=== PATIENT | male | born 1940 | race African-American/Black ===

== ENCOUNTER 2018-01-17 07:47 | Day surgery (SDC) | payer OTHER ==
[2018-01-14 14:08] VITALS: BMI 25.5
[2018-01-17 08:39] VITALS: TEMP 97.6
[2018-01-17] MEDS ORDERED: LIDOCAINE HCL/PF 2% SDV 5ML VIAL ONE (08:55)
[2018-01-17] MEDS ORDERED: PROPOFOL 20 ML ONE ×3 (08:55)
[2018-01-17 12:23] VITALS: BP 122/58; PULSE 60
--- NOTE | 2018-01-19 13:03 | PATH ---
Surgical Pathology Report Patient Name: LENNY SHEFFIELD [facility]. Rec. #: [id number] /Age/Gender: 1940 (Age: 77) / M Account: [id number] Location: U-ENDOSCOPY Taken: 01/17/2018 Received: 01/17/2018 Reported: 01/19/2018 Physicians: Charlie Velazquez M.D. Specimen(s) Received A: BX 2ND PORTION DUODENUM AND BULB B: BX ANTRUM C: BX GE JUNCTION D: POLYP SIGMOID AT 18 CM E: BX ILEUM F: BX CECUM G: BX RIGHT COLON H: BX PROXIMAL TRANSVERSE COLON I: BX TRANSVERSE COLON STRICTURE J: BX DESCENDING COLON K: BX SIGMOID L: BX RECTUM Clinical History Refractory GERD, ulcerating colitis Final Diagnosis A. 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 B. ANTRUM, BIOPSY: GASTRIC MUCOSA WITH MILD CHRONIC INFLAMMATION. IMMUNOSTAIN IS NEGATIVE FOR H. PYLORI ORGANISMS. C. GE JUNCTION, BIOPSY: ESOPHAGEAL (SQUAMOUS) MUCOSA WITH CHANGES CONSISTENT WITH REFLUX ESOPHAGITIS. D. SIGMOID POLYP AT 18 CM, POLYPECTOMY: INFLAMMATORY POLYP. E. ILEUM, BIOPSY: ILEAL MUCOSAL WITH MILD CHRONIC ILEITIS. F. CECUM, BIOPSY: COLONIC MUCOSA WITH ACTIVE CHRONIC INFLAMMATION OF LAMINA PROPRIA, ACUTE CRYPTITIS, CRYPT ABSCESS, CRYPTAL DISTORTION, AND LYMPHOID AGGREGATES. G. RIGHT COLON, BIOPSY: COLONIC MUCOSA WITH ACTIVE CHRONIC INFLAMMATION OF LAMINA PROPRIA, ACUTE CRYPTITIS, CRYPT ABSCESS, CRYPTAL DISTORTION, AND LYMPHOID AGGREGATES. H. PROXIMAL TRANSVERSE COLON, BIOPSY: COLONIC MUCOSA WITH ACTIVE CHRONIC INFLAMMATION OF LAMINA PROPRIA, ACUTE CRYPTITIS, CRYPT ABSCESS, AND CRYPTAL DISTORTION. I. TRANSVERSE COLON STRICTURE, BIOPSY: COLONIC MUCOSA WITH SEVERE ACTIVE CHRONIC INFLAMMATION OF LAMINA PROPRIA, ACUTE CRYPTITIS, CRYPT ABSCESS, CRYPTAL DISTORTION, AND LYMPHOID AGGREGATES. ONE FOCUS OF GRANULOMATOUS INFLAMMATION PRESENT IN THE LAMINA PROPRIA. SEE COMMENT. COMMENT: PAS STAIN FOR FUNGAL HYPHAE AND AFB STAIN ARE NEGATIVE. J. DESCENDING COLON, BIOPSY: COLONIC MUCOSA WITH SEVERE ACTIVE CHRONIC INFLAMMATION OF LAMINA PROPRIA, ACUTE CRYPTITIS, CRYPT ABSCESS, CRYPTAL DISTORTION, AND LYMPHOID AGGREGATES. K. SIGMOID, BIOPSY: COLONIC MUCOSA WITH ACTIVE CHRONIC INFLAMMATION OF LAMINA PROPRIA, ACUTE CRYPTITIS, AND CRYPTAL DISTORTION. L. RECTUM, BIOPSY: COLONIC MUCOSA WITH ACTIVE CHRONIC INFLAMMATION OF LAMINA PROPRIA, ACUTE CRYPTITIS, LYMPHOID AGGREGATES, AND CRYPTAL DISTORTION. Electronically Signed Sherine Agarwal M.D. Gross Description A. Received in formalin, labeled "second portion duodenum and bulb" are multiple davidson, irregular portions of soft tissue measuring 0.5 cm. in greatest dimension. The specimens are submitted in toto in one cassette. B. Received in formalin, labeled "biopsy antrum" are multiple davidson, irregular portions of soft tissue measuring 0.5 cm. in greatest dimension. The specimens are submitted in toto in one cassette. C. Received in formalin, labeled "biopsy GE junction" are 2 davidson, irregular portions of soft tissue measuring 0.3 cm. in greatest dimension. The specimens are submitted in toto in one cassette. D. Received in formalin, labeled "sigmoid colon polyp" is a polypoid soft tissue measuring 1 x 0.5 x 0.5 cm. the specimen is entirely submitted in one cassette the bisected. E. Received in formalin, labeled "biopsy ileum" is a davidson, irregular portion of soft tissue measuring 0.3 cm. in greatest dimension. The specimens are submitted in toto in one cassette. F. Received in formalin, labeled "biopsy cecum" are multiple davidson, irregular portions of soft tissue measuring 0.5 cm. in greatest dimension. The specimens are submitted in toto in one cassette. G. Received in formalin, labeled "biopsy right colon" are 4 davidson, irregular portions of soft tissue measuring 0.4 cm. in greatest dimension. The specimens are submitted in toto in one cassette. H. Received in formalin, labeled "biopsy proximal transverse colon" are 3 davidson, irregular portions of soft tissue measuring 0.4 cm. in greatest dimension. The specimens are submitted in toto in one cassette. I. Received in formalin, labeled "biopsy transverse colon" are 3 davidson, irregular portions of soft tissue measuring 0.4 cm. in greatest dimension. The specimens are submitted in toto in one cassette. J. Received in formalin, labeled "biopsy descending colon" are 4 davidson, irregular portions of soft tissue measuring 0.3 cm. in greatest dimension. The specimens are submitted in toto in one cassette. K. Received in formalin, labeled "biopsy sigmoid colon", are 2 portions of soft tissue measuring 0.3 cm in largest dimension. the specimen is entirely submitted in one cassette the bisected. L. Received in formalin, labeled "biopsy rectum" are multiple davidson, irregular portion of soft tissue measuring 0.5 cm. in greatest dimension. The specimens are submitted in toto in one cassette. __ KUNAL/01/17/2018 roscoe/01/17/2018
== END 2018-01-17 12:23 | disposition home or self-care (01) ==
LOC: JASU-ENDO 07:47
PROVIDERS: ATTEND Internal Medicine Gastroenterology
PROC: 0DB68ZX Excision of Stomach, Via Natural or Artificial Opening Endoscopic, Diagnostic (ICD-10-PCS; 2018-01-17)
PROC: 0DB28ZX Excision of Middle Esophagus, Via Natural or Artificial Opening Endoscopic, Diagnostic (ICD-10-PCS; 2018-01-17)
PROC: 0DB48ZX Excision of Esophagogastric Junction, Via Natural or Artificial Opening Endoscopic, Diagnostic (ICD-10-PCS; 2018-01-17)
PROC: 0DBN8ZX Excision of Sigmoid Colon, Via Natural or Artificial Opening Endoscopic, Diagnostic (ICD-10-PCS; 2018-01-17)
PROC: 0DBB8ZX Excision of Ileum, Via Natural or Artificial Opening Endoscopic, Diagnostic (ICD-10-PCS; 2018-01-17)
PROC: 0DBE8ZX Excision of Large Intestine, Via Natural or Artificial Opening Endoscopic, Diagnostic (ICD-10-PCS; 2018-01-17)
PROC: 0DBL8ZX Excision of Transverse Colon, Via Natural or Artificial Opening Endoscopic, Diagnostic (ICD-10-PCS; 2018-01-17)
PROC: 0DBN8ZX Excision of Sigmoid Colon, Via Natural or Artificial Opening Endoscopic, Diagnostic (ICD-10-PCS; 2018-01-17)
PROC: 0DBF8ZX Excision of Right Large Intestine, Via Natural or Artificial Opening Endoscopic, Diagnostic (ICD-10-PCS; 2018-01-17)
PROC: 0DB98ZX Excision of Duodenum, Via Natural or Artificial Opening Endoscopic, Diagnostic (ICD-10-PCS; principal; 2018-01-17 09:00)
DX: Z12.11 Encounter for screening for malignant neoplasm of colon (principal); K62.89 Other specified diseases of anus and rectum; K51.90 Ulcerative colitis, unspecified, without complications; D12.5 Benign neoplasm of sigmoid colon; K21.0 Gastro-esophageal reflux disease with esophagitis; K29.80 Duodenitis without bleeding; K56.699 Other intestinal obstruction unspecified as to partial versus complete obstruction; K29.60 Other gastritis without bleeding; K44.9 Diaphragmatic hernia without obstruction or gangrene; R09.02 Hypoxemia; I10 Essential (primary) hypertension; E11.9 Type 2 diabetes mellitus without complications
CPT/HCPCS: 88305-TC; 88312-TC; 88342-TC

== ENCOUNTER 2022-09-13 07:53 | Inpatient (IN) | payer OTHER ==
[2022-09-13] MEDS ORDERED: ONDANSETRON 4 MG/2 ML VIAL IVPUSH ONE ×2 (08:16→11:54)
[2022-09-13] MEDS ORDERED: LACTATED RINGERS SOLUTION 1000 ML INFUS.BAG IV ONE (08:16)
[2022-09-13] MEDS ORDERED: FAMOTIDINE 20 MG/50 ML IVPB 20 MG/50 ML MG IVPB ONE ×2 (08:16→08:29)
[2022-09-13] MEDS ORDERED: ACETAMINOPHEN 1000 MG/100 ML BAG IVPB ONE (08:16)
[2022-09-13] MEDS ORDERED: ACETAMINOPHEN INJECTION 100 ML IVPB ONE (08:28)
[2022-09-13] MEDS ORDERED: ONDANSETRON 4 MG/2 ML VIAL ONE ×2 (08:28→11:55)
[2022-09-13 08:52] LABS: INR 1.01 (0.83-1.09); PROTHROMBIN TIME (PATIENT) 11.7 SEC (9.7-13.0)
[2022-09-13 08:55] LABS: ACTIVATED PTT 31.1 SECONDS (25.2-36.5)
[2022-09-13 08:59] LABS: BASO % 0.4 % (0-2.0); EOS % 2.5 % (0-4.5); HEMATOCRIT 40.5 % (35.4-49); HEMOGLOBIN 13.4 GM/dL (11.7-16.9); LYMPH % 8.9 % (8-40); MEAN CELL VOLUME 81.8 fl (80-96); MEAN PLT VOLUME 8.4 fl (7.5-11.1); MONO % 5.2 % (3.8-10.2); PLATELET COUNT 190 10^3/uL (134-434); RBC 4.95 M/mm3 (4.00-5.60); RDW 13.1 % (11.9-15.9); WHITE BLOOD COUNT 9.7 K/mm3 (4.0-10.0)
[2022-09-13 09:03] LABS: ALBUMIN 3.9 g/dl (3.4-5.0); CALCIUM 9.4 mg/dL (8.5-10.1)
[2022-09-13 09:04] LABS: BLOOD UREA NITROGEN 15.2 mg/dL (7-18)
[2022-09-13 09:07] LABS: CREATININE 1.4 mg/dL (0.55-1.3)
[2022-09-13 09:09] LABS: BILIRUBIN,TOTAL 0.8 mg/dL (0.2-1); TOT PROT 8.4 g/dl (6.4-8.2)
[2022-09-13 12:35] LABS: CALCIUM 8.4 mg/dL (8.5-10.1)
[2022-09-13 12:37] LABS: BLOOD UREA NITROGEN 13.8 mg/dL (7-18)
[2022-09-13 12:39] LABS: CREATININE 1.2 mg/dL (0.55-1.3)
[2022-09-13] MEDS ORDERED: METOCLOPRAMIDE HCL INJECTION 10 MG/2 ML VIAL IVPUSH ONE (13:23)
[2022-09-13] MEDS ORDERED: ONDANSETRON 4 MG TABLET PO PRN (13:27)
[2022-09-13] MEDS ORDERED: METOCLOPRAMIDE HCL INJECTION 10 MG/2 ML VIAL IVPUSH PRN (13:27)
[2022-09-13] MEDS ORDERED: PANTOPRAZOLE SODIUM 40 MG VIAL IVPUSH ONE (13:29)
[2022-09-13] MEDS ORDERED: LACTATED RINGERS SOLUTION 1,000 ML IV SCH (13:30)
[2022-09-13] MEDS ORDERED: PANTOPRAZOLE SODIUM 40 MG/100 ML BAG IVPB ONE (13:44)
[2022-09-13] MEDS ORDERED: METOCLOPRAMIDE HCL INJECTION 10 MG/2 ML VIAL ONE (13:44)
[2022-09-13 16:38] VITALS: BMI 24.4
[2022-09-13] MEDS: ATORVASTATIN CA 80 MG TABLET (FP) PO SCH (23:07)
[2022-09-14 08:54] LABS: INR 1.18 (0.83-1.09); PROTHROMBIN TIME (PATIENT) 13.7 SEC (9.7-13.0)
[2022-09-14 08:56] LABS: ACTIVATED PTT 30.7 SECONDS (25.2-36.5)
[2022-09-14 09:14] LABS: BASO % 0.6 % (0-2.0); EOS % 3.2 % (0-4.5); HEMATOCRIT 34.1 % (35.4-49); HEMOGLOBIN 11.3 GM/dL (11.7-16.9); LYMPH % 30.6 % (8-40); MCH 26.9 pg (25.7-33.7); MCHC 33.2 g/dl (32.0-35.9); MEAN CELL VOLUME 80.9 fl (80-96); MEAN PLT VOLUME 8.5 fl (7.5-11.1); MONO % 11.7 % (3.8-10.2); NEUT % 53.9 % (42.8-82.8); PLATELET COUNT 151 10^3/uL (134-434); RBC 4.21 M/mm3 (4.00-5.60); RDW 13.1 % (11.9-15.9)
[2022-09-14 09:28] LABS: BLOOD UREA NITROGEN 15.1 mg/dL (7-18); CALCIUM 8.3 mg/dL (8.5-10.1); MAGNESIUM 1.6 mg/dL (1.8-2.4)
[2022-09-14 09:29] LABS: CREATININE 1.3 mg/dL (0.55-1.3); PHOSPHOROUS 2.9 mg/dL (2.5-4.9)
[2022-09-14 09:35] LABS: ALBUMIN 2.9 g/dl (3.4-5.0); BILIRUBIN,TOTAL 1.8 mg/dL (0.2-1); TOT PROT 6.1 g/dl (6.4-8.2)
[2022-09-14] MEDS: ASPIRIN 81 MG CHEWABLE TABLETS PO SCH (09:54)
[2022-09-14] MEDS: LOSARTAN POTASSIUM 50 MG TABLET PO SCH (09:54)
[2022-09-14] MEDS: ENOXAPARIN NA (PORCINE) 40 MG/0.4 ML DISP.SYRIN SQ SCH (09:54)
[2022-09-14] MEDS: PANTOPRAZOLE 40 MG TABLET PO SCH (09:54)
[2022-09-14] MEDS ORDERED: MAGNESIUM 1GM/D5W - 1 GM/100 ML IVPB IVPB ONE (17:42)
[2022-09-14] MEDS: ATORVASTATIN CA 80 MG TABLET (FP) PO SCH (22:00)
[2022-09-15] MEDS: ENOXAPARIN NA (PORCINE) 40 MG/0.4 ML DISP.SYRIN SQ SCH (10:25)
[2022-09-15] MEDS: PANTOPRAZOLE 40 MG TABLET PO SCH (10:26)
[2022-09-15] MEDS: LOSARTAN POTASSIUM 50 MG TABLET PO SCH (10:26)
[2022-09-15] MEDS: ASPIRIN 81 MG CHEWABLE TABLETS PO SCH (10:26)
[2022-09-15 10:35] LABS: BILIRUBIN,DIRECT 0.2 mg/dL (0.0-0.2)
[2022-09-15 15:33] VITALS: BP 151/77; PULSE 88; RESP 20; TEMP 97.9
[2022-09-15 15:36] LABS: BASO % 0.5 % (0-2.0); EOS % 3.4 % (0-4.5); HEMATOCRIT 37.4 % (35.4-49); HEMOGLOBIN 12.2 GM/dL (11.7-16.9); LYMPH % 34.2 % (8-40); MCH 26.5 pg (25.7-33.7); MCHC 32.5 g/dl (32.0-35.9); MEAN CELL VOLUME 81.5 fl (80-96); MONO % 12.7 % (3.8-10.2); NEUT % 49.2 % (42.8-82.8); PLATELET COUNT 170 10^3/uL (134-434); RDW 13.5 % (11.9-15.9); WHITE BLOOD COUNT 4.7 K/mm3 (4.0-10.0)
[2022-09-15 16:17] LABS: ALBUMIN 3.3 g/dl (3.4-5.0); BILIRUBIN,TOTAL 0.9 mg/dL (0.2-1); BLOOD UREA NITROGEN 11.3 mg/dL (7-18); CALCIUM 8.7 mg/dL (8.5-10.1); CREATININE 1.4 mg/dL (0.55-1.3); TOT PROT 7.2 g/dl (6.4-8.2)
== END 2022-09-15 15:36 | disposition home or self-care (01) | DRG 445 ==
LOC: JER 07:53 → JERBED 13:26 → J7W 15:50 → J8W 09-14 18:47
PROVIDERS: ADMIT Internal Medicine; ATTEND Internal Medicine
DX: K83.8 Other specified diseases of biliary tract (principal); K51.90 Ulcerative colitis, unspecified, without complications; I25.10 Atherosclerotic heart disease of native coronary artery without angina pectoris; I10 Essential (primary) hypertension; E78.5 Hyperlipidemia, unspecified; I45.10 Unspecified right bundle-branch block; Z95.1 Presence of aortocoronary bypass graft; K21.9 Gastro-esophageal reflux disease without esophagitis; K44.9 Diaphragmatic hernia without obstruction or gangrene
CPT/HCPCS: 0241U-QW; 36415; 71045-TC-FY; 74177-TC; 74181-TC; 74220-TC-FY; 74240-TC-FY; 80048; 80053; 82248; 83605; 83690; 83735; 84100; 84484; 85025; 85610; 85730; 86850; 86900; 86901; 93005; 93010; 99285-25; Q9967